=== PATIENT | male | born 1950 | race Caucasian/White ===

== ENCOUNTER 2019-01-04 19:09 | Emergency (ER) | payer BC ==
--- NOTE | 2019-01-04 20:30 | ED ---
Laceration/Wound HPI - HPI Summary HPI Summary: 68 year old male presents with left middle finger laceration today. He states he cut it on a knife. He states the area is not actively bleeding. He is not on any blood thinners. Believes his tetanus up-to-date. He is left-handed. Has full range of motion of the hand. - History of Current Complaint Stated Complaint: L MIDDLE FINGER LAC PER PT Time Seen by Provider: 01/04/19 19:39 Pain Intensity: 3 - Allergy/Home Medications Allergies/Adverse Reactions: Allergies Allergy/AdvReac Type Severity Reaction Status Date / Time No Known Allergies Allergy Verified 01/04/19 20:30 PMH/Surg Hx/FS Hx/Imm Hx Endocrine/Hematology History: Denies: Hx Anticoagulant Therapy Respiratory History: Denies: Hx Asthma Infectious Disease History: No Infectious Disease History: Denies: Traveled Outside the [place] in Last 30 Days - Family History Known Family History: Positive: Non-Contributory - Social History Substance Use Type: Reports: None Smoking Status (MU): Unknown if Ever Smoked Review of Systems Negative: Fever Negative: Chest Pain Negative: Shortness Of Breath Positive: Other - left middle finger laceration All Other Systems Reviewed And Are Negative: Yes Physical Exam Triage Information Reviewed: Yes Vital Signs On Initial Exam: Initial Vitals Temp Pulse Resp BP Pulse Ox 98.1 F 82 16 111/96 97 01/04/19 19:11 01/04/19 19:11 01/04/19 19:11 01/04/19 19:11 01/04/19 19:11 Vital Signs Reviewed: Yes Appearance: Positive: Well-Appearing Skin: Positive: Warm, Dry, Other - 2cm by 1/2cm laceration to middle phalanx of left middle finger Head/Face: Positive: Normal Head/Face Inspection Eyes: Positive: Normal, Conjunctiva Clear ENT: Positive: Pharynx normal Respiratory/Lung Sounds: Positive: Clear to Auscultation, Breath Sounds Present Cardiovascular: Positive: Normal, RRR Musculoskeletal: Positive: Strength/ROM Intact - left hand, Other - capillary refill<2 secs Neurological: Positive: Normal Psychiatric: Positive: Normal Procedures - Sedation Patient Received Moderate/Deep Sedation with Procedure: No - Laceration/Wound Repair 1 Location: Other - left middle finger laceration Description: Linear Anesthesia: Digital, 1.0% Length, Depth and Shape: 2cm by 1cm Irrigated w/ Saline (ccs): 300 Suture Type: Nylon Number of Sutures: 6 Diagnostics - Vital Signs Vital Signs Temp Pulse Resp BP Pulse Ox 01/04/19 19:11 98.1 F 82 16 111/96 97 - Laboratory Lab Statement: Any lab studies that have been ordered have been reviewed, and results considered in the medical decision making process. Laceration Repair Course/Dx - Course Course Of Treatment: 68 year old male presents with left middle finger laceration today. He states he cut it on a knife. He states the area is not actively bleeding. He is not on any blood thinners. Believes his tetanus up-to -date. He is left-handed. Has full range of motion of the hand. On exam has 2cm by 1/2cm laceration of left middle finger. Neurovascularly intact. Area was cleaned and sutured by PA student who placed 6 sutures. Told to keep area clean dry. Patient understands agrees plan. - Differential Dx Differental Diagnoses: Abrasion, Avulsion, Laceration - Clinical Impression Provider Diagnoses: Laceration of left middle finger Discharge ED - Sign-Out/Discharge Documenting (check all that apply): Patient Departure - Discharge Plan Condition: Good Disposition: HOME Patient Education Materials: Care For Your Stitches (ED) Referrals: Junior Jaime MD [Primary Care Provider] - Additional Instructions: Take Tylenol or ibuprofen for pain every 6 hours as needed Keep area clean and dry for 24 hours Return to ED or primary in 8-10 days to have sutures removed Return to ED if develop signs of infection such as fever, spreading redness, or pus. - Billing Disposition and Condition Condition: GOOD Disposition: Home
[2019-01-04 21:14] VITALS: BP 110/86
== END 2019-01-04 21:13 | disposition home or self-care (01) ==
LOC: ED 19:09
DX: S61.213A Laceration without foreign body of left middle finger without damage to nail, initial encounter (principal); W26.0XXA Contact with knife, initial encounter; Y92.9 Unspecified place or not applicable
CPT/HCPCS: 12001; 99281